=== PATIENT | male | born 1940 | race Caucasian/White ===

== ENCOUNTER 2021-10-11 12:41 | Outpatient (REF) | payer MEDICARE, SELFPAY ==
--- NOTE | ~2021-10-11 | MR_ITS ---
MRI OF THE CERVICAL, THORACIC, AND LUMBAR SPINE WITHOUT CONTRAST. CLINICAL INFORMATION: PARKINSONISM. COMPARISON: None TECHNIQUE: Multiplanar multisequence MR imaging of the cervical, thoracic, and lumbar spine obtained without contrast. FINDINGS: CERVICAL SPINE MRI: Cervical alignment is maintained. Vertebral body heights are preserved. There is mild to moderate disc volume loss at C4-C5, C5-C6 and C6-C7. Craniocervical junction is unremarkable. Modic type I endplate signal changes at C5-C6. There is no additional bone marrow edema. The partially imaged intracranial compartment demonstrates global cerebral volume loss and chronic microangiopathy. The cervical arterial flow voids are maintained. No significant extraspinal soft tissue findings. No definite cord signal changes though assessment is very limited by the degree of motion artifact. C2-C3: Slight annular disc bulge. Bilateral facet arthropathy. No central canal stenosis and no foraminal stenosis. C3-C4: Advanced left-sided uncovertebral joint hypertrophy and hypertrophic facet arthropathy result in severe left foraminal stenosis. No central canal stenosis. Mild right foraminal encroachment. C4-C5: Disc osteophyte without central canal stenosis. Advanced uncovertebral joint hypertrophy and hypertrophic facet arthropathy result in moderate left foraminal stenosis. C5-C6: Disc osteophyte and ligamentum flavum thickening mildly narrow the central canal. Advanced uncovertebral joint hypertrophy and hypertrophic facet arthropathy result in severe bilateral foraminal stenosis. C6-C7: Disc osteophyte mildly narrows the central canal. Advanced uncovertebral joint hypertrophy and hypertrophic facet arthropathy result in moderate to severe bilateral foraminal stenosis. C7-T1: Disc osteophyte without central canal stenosis. No foraminal stenosis. THORACIC SPINE MRI: There are 12 rib-bearing thoracic type vertebral bodies. Leftward convex curvature of the upper thoracic spine. There is a midthoracic kyphosis. The vertebral body heights are maintained and the disc volumes are preserved. No bone marrow edema. No acute fractures. Conus terminates at the L1 level. Small chronic endplate Schmorl's nodes at the lower thoracic levels. Small disc protrusion at T9-T10 associated with an annular fissure along with left-sided ligamentum flavum thickening and facet arthropathy result in slight flattening of the left cord and mild left-sided central canal stenosis. No severe foraminal stenosis within the thoracic spine. There is a right renal cyst and there is a small cyst partially imaged within the liver. LUMBAR SPINE MRI: There is a leftward convex scoliotic curvature of the lumbar spine. 5 nonrib-bearing lumbar-type vertebral bodies. There is grade 1 degenerative anterolisthesis of L4 on L5 and L5 on S1. Grade 1 retrolisthesis of L1 on L2, L2 on L3, and L3 on L4. Otic type I endplate signal changes at L1-L2, L2-L3, L3-L4, L4-L5, and L5-S1. Partially imaged heterogeneous increased signal on STIR weighted imaging within the partially imaged right and left sacral sheree that can be further assessed with a pelvic MRI to exclude sacral pathology or a pelvic fracture. Bilateral renal cysts. Bladder is significantly distended. L1-L2: Grade 1 retrolisthesis. Diffuse annular disc bulge and bilateral facet arthropathy. No central canal stenosis. Mild foraminal encroachment bilaterally. L2-L3: Grade 1 retrolisthesis. Shallow right paracentral disc protrusion results in posterior mass effect on the traversing right L3 nerve root within the right subarticular zone and right lateral disc osteophyte and facet arthropathy result in severe right foraminal stenosis with compression of the exiting right L2 nerve root. L3-L4: Grade 1 retrolisthesis. Diffuse disc osteophyte and moderate to severe bilateral facet arthropathy and ligamentum flavum thickening. Mild central canal stenosis. Moderate right foraminal stenosis with mild mass effect on the exiting right L3 nerve root. L4-L5: Slight grade 1 anterolisthesis. Uncovered disc osteophyte. Severe bilateral facet arthropathy and ligamentum flavum thickening. Findings in concert result in moderate central canal stenosis as well as severe right and moderate left foraminal stenosis with mass effect on the exiting right greater than left L4 nerve roots. L5-S1: Grade 1 anterolisthesis. Severe bilateral facet arthropathy and ligamentum flavum thickening. Findings in concert result in mild central canal stenosis, severe left subarticular zone stenosis with compression of the traversing left S1 nerve root, as well as moderate to severe left foraminal stenosis with compression of the exiting left L5 nerve root. MR/MR cervical spine wo con IMPRESSION: Multilevel cervical spondylosis. Spondylitic changes result in varying degrees of moderate to severe foraminal stenosis throughout the cervical spine as described. No severe central canal stenosis within the cervical spine. No definite cord signal changes though assessment is very limited by the degree of motion artifact. There is a thoracic kyphoscoliosis. A small left paracentral disc protrusion at T9-T10 associated with an annular fissure along with left-sided ligamentum flavum thickening and facet arthropathy result in slight flattening of the left cord and mild left-sided central canal stenosis. No severe foraminal stenosis within the thoracic spine. No definite cord signal changes within the thoracic spine however assessment is limited by the degree of artifact. - Partially imaged heterogeneous increased signal on STIR weighted imaging within the partially imaged right and left sacral sheree that can be further assessed with a pelvic MRI to exclude sacral pathology or a pelvic fracture. - At L2-L3, a right paracentral/right lateral disc protrusion results in posterior mass effect on the traversing right L3 nerve root within the right subarticular zone severe right foraminal stenosis with compression of the exiting right L2 nerve root. - At L3-L4, grade 1 retrolisthesis and multifactorial degenerative changes result in central canal stenosis and moderate right foraminal stenosis with mild mass effect on the exiting right L3 nerve root. - At L4-L5, grade 1 anterolisthesis and multifactorial degenerative changes result in moderate central canal stenosis as well as severe right and moderate left foraminal stenosis with mass effect on the exiting right greater than left L4 nerve roots. - At L5-S1, grade 1 anterolisthesis and multifactorial degenerative changes result in mild central canal stenosis, severe left subarticular zone stenosis with compression of the traversing left S1 nerve root, as well as moderate to severe left foraminal stenosis with compression of the exiting left L5 nerve root. - Bladder is significantly distended.
== END 2021-10-11 12:42 | disposition home or self-care (01) ==
LOC: HO.MRI 12:41
PROVIDERS: PCP Internal Medicine; Visit Provider Internal Medicine
DX: G20 Parkinson's disease (principal); G24.8 Other dystonia
CPT/HCPCS: 72141; 72146; 72148

== ENCOUNTER 2022-09-01 15:33 | Emergency (ER) | payer MEDICARE, SELFPAY ==
--- NOTE | ~2022-09-01 | CT_ITS ---
Indication: Multiple falls EXAMINATION: CT of the brain and CT of the cervical spine. Axial imaging with coronal and sagittal reformatted images. This CT examination was performed using dose optimization techniques as appropriate, variously including the following: *Automated exposure control *Adjustment of mA and/or kV according to patient size (this includes techniques or standardized protocols for targeted exams where dose is matched to indication/reason for exam; i.e. extremities or head) *Use of iterative reconstruction technique. Radiation dose [address] brain; There is no midline shift. There is no mass effect. There is no hemorrhage. The basal cisterns appear patent. The posterior fossa is grossly within normal limits. There is no extra-axial collection. There is atrophy and white matter ischemic change here. Low density within the right cerebellum could represent an infarct here Review of the bone windows does not demonstrate fracture. CT cervical spine; Degenerative changes. No acute fracture or dislocation. CT/CT head/brain wo IV con IMPRESSION: Negative acute noncontrast CT the brain. Atrophy and probable white matter ischemic changes. An area of low density in the right cerebellum could represent infarct. Underlying lesion cannot be completely excluded. Consider MR. No fracture or dislocation in the cervical spine.
--- NOTE | ~2022-09-01 | CT_ITS ---
EXAMINATION: CT FACIAL BONES WITHOUT CONTRAST CLINICAL INFORMATION: Trauma COMPARISON: None TECHNIQUE: Axial imaging with coronal and sagittal reformatted images. This CT examination was performed using dose optimization techniques as appropriate, variously including the following: *Automated exposure control *Adjustment of mA and/or kV according to patient size (this includes techniques or standardized protocols for targeted exams where dose is matched to indication/reason for exam; i.e. extremities or head) *Use of iterative reconstruction technique DLP: 450 mGy-cm FINDINGS: No fracture CT/CT facial bones wo IV con IMPRESSION: No fracture seen facial bones.
--- NOTE | ~2022-09-01 | CT_ITS ---
Indication: Multiple falls EXAMINATION: CT of the brain and CT of the cervical spine. Axial imaging with coronal and sagittal reformatted images. This CT examination was performed using dose optimization techniques as appropriate, variously including the following: *Automated exposure control *Adjustment of mA and/or kV according to patient size (this includes techniques or standardized protocols for targeted exams where dose is matched to indication/reason for exam; i.e. extremities or head) *Use of iterative reconstruction technique. Radiation dose [address] brain; There is no midline shift. There is no mass effect. There is no hemorrhage. The basal cisterns appear patent. The posterior fossa is grossly within normal limits. There is no extra-axial collection. There is atrophy and white matter ischemic change here. Low density within the right cerebellum could represent an infarct here Review of the bone windows does not demonstrate fracture. CT cervical spine; Degenerative changes. No acute fracture or dislocation. CT/CT cervical spine wo IV con IMPRESSION: Negative acute noncontrast CT the brain. Atrophy and probable white matter ischemic changes. An area of low density in the right cerebellum could represent infarct. Underlying lesion cannot be completely excluded. Consider MR. No fracture or dislocation in the cervical spine.
[2022-09-01 15:45] VITALS: BP 130/72; PULSE 60
[2022-09-01 15:58] VITALS: BP 111/85; PULSE 71; RESP 18; TEMP 36.9; O2SAT 95; BMI 22.8
--- NOTE | 2022-09-01 16:00 | PC.NURSE ---
81 y/o M TRAVIS from home with multiple falls and wound to LLE. currently being worked up for ?parkinsons by PCP and was on track to see neurologist. pt is aox3, calm and cooperative, VSS. 18G IV in place, c-collar in place. in gown, on monitor, awaiting MD limon
--- NOTE | 2022-09-01 16:23 | ECG_ITS ---
Test Reason : fall Blood Pressure : / mmHG Vent. Rate : 077 BPM Atrial Rate : 000 BPM P-R Int : 000 ms QRS Dur : 132 ms QT Int : 404 ms P-R-T Axes : 000 -60 042 degrees QTc Int : 457 ms Atrial fibrillation with occasional ventricular-paced complexes Right bundle branch block Left anterior fascicular block Bifascicular block Abnormal ECG When compared with ECG of 24-SEP-2017 12:12, Electronic ventricular pacemaker has replaced Atrial fibrillation Referred By: Traci Collado Electronically Signed By:Hayden Chavarria
--- NOTE | 2022-09-01 16:27 | ED_ITS ---
HPI - General Adult General Chief complaint: Fall Stated complaint: Fall (bruise on face) per EMS Time Seen by Provider: 09/01/22 15:50 Source: patient Mode of arrival: EMS Limitations: no limitations History of Present Illness HPI narrative: Patient comes to the emergency room from home. Patient states that over the last few weeks, patient has had multiple falls. Today, patient fell again and hit the back of his head. Patient denies loss of consciousness or lacerations. Patient has history of Parkinson's, walks using canes. Patient denies headache or neck pain. Patient states that he has a nonhealing wound in his left lower extremity. Mildly tender to touch. Patient denies fever chills Related Data Allergies Allergy/AdvReac Type Severity Reaction Status Date / Time amoxicillin [From AUGMENTIN] Allergy Intermediate LIP Unverified 05/05/20 18:07 SWELLING clavulanic acid Allergy Intermediate LIP Unverified 05/05/20 18:07 [From AUGMENTIN] SWELLING piperacillin [From ZOSYN] Allergy Intermediate LIP Unverified 05/05/20 18:07 SWELLING tazobactam [From ZOSYN] Allergy Intermediate LIP Unverified 05/05/20 18:07 SWELLING Review of Systems Review of Systems: Constitutional : No Weight loss, No Fever, No Chills, No Night Sweats, No Fatigue, No Malaise ENT/Mouth : No Hearing loss, No Ear Pain, No Nasal Congestion, No Sinus Pain, No Hoarseness, No sore throat, No Rhinorrhea, No Swallowing Difficulty Eyes: No Eye Pain, No Swelling, No Redness, No Foreign Body, No Discharge, No Vision Changes Cardiovascular : No Chest Pain, No SOB, No Dyspnea on Exertion, No Orthopnea, No Edema, No Palpitations Respiratory : No Cough, No Sputum, No Wheezing, No Smoke Exposure, No Dyspnea Gastrointestinal : No Nausea, No Vomiting, No Diarrhea, No Constipation, No abdominal Pain, No Hematochezia, No Melena Genitourinary : no irregular bleeding, No Dysuria, No Urinary Frequency, No Hematuria, No Urinary Incontinence, No Urgency, No Flank Pain, No Urinary Flow Changes, No Hesitancy Musculoskeletal : No joint pain, No Myalgias, No Joint Swelling Skin : Complaining of a nonhealing ulcer in the ribera on the left lower extremity Neuro : Complaining of multiple falls, No Numbness, No Paresthesias, No Loss of Consciousness, No Dizziness, No Headache Psych : No Anxiety/Panic, No Depression, No SI/HI/AH/VH, No Social Issues, Heme/Lymph: No Bruising, No Bleeding,No Lymphadenopathy Endocrine : No Polyuria, No Polydipsia, No Temperature Intolerance [facility] Past Medical History Medical History Atrial fibrillation Parkinson's disease Social History Social History Advance Directives: No Physical Exam ED Vital Signs: Vital Signs - 24 hr 09/01/22 15:58 09/01/22 18:49 09/01/22 20:14 Temperature 98.4 F 97.7 F 98.4 F Pulse Rate 71 91 81 Respiratory Rate 18 18 17 Blood Pressure 111/85 121/65 115/64 Pulse Oximetry 95 99 100 Oxygen Delivery Method Room Air Room Air BMI result Body Mass Index 22.8 Const Other: Appearance: Alert. Oriented X3. No acute distress. Eyes: Pupils equal, round and reactive to light. ENT: Pharynx normal. Neck: Normal inspection. Neck supple. No lymph nodes noted. No crepitus, no palpable step-offs CVS: Normal heart rate and rhythm. Pulses normal. Normal S1 and S2 Respiratory: No respiratory distress. Breath sounds normal. No Wheezing. No rales Abdomen: Soft and nontender. No rigidity. No distention. Skin: Skin warm and dry. A scar on anterior aspect of the left lower extremity Extremities: No lower extremity edema. Neuro: Oriented X 3. Moving all extremities. No slurred speech. CN 2 through 12 grossly intact Psych: calm, cooperative, normal affect Course Course Course Narrative: -patient has multiple falls to the Parkinson's -head CT cervical spine and facial bone CT pending -patient has no complaints at this time. -grease man is on the way. We will assess if patient needs case management involvement for escalation of care -CT scan shows an area of low density in the right cerebellum which could re present an infarct and an MRI is recommended. Patient has a pacemaker. I discussed the findings with the patient and his son. Both states that patient has had multiple workups in the past. They requested if they can call their neurologist and have the workup done in an outpatient basis. Pacing the patient would do better back at home. Patient and his son respectfully declined admission. -other than the multiple falls, patient has no new neurological deficits. Urinalysis negative. Case management consult and physical therapy was offered to the patient and the son. They say that they have Services pending through [facility] case management. At this time, they declined any further assistance. Patient did his own swallow evaluation, when we walked into the room patient was eating a burger and tolerating well p.o. Medical Decision Making Differential Diagnosis Differential Diagnoses: The differential diagnosis associated with the presentation includes (Parkinson's, concussion, CVA) Admission/Observation Consideration of admission/observation: Escalation of care including admission/observation considered (Admission was offered and Dr. Fong agreed to admit the patient. Both of us spoke to the patient and his son, both son and patient agreed that they would do the workup in an outpatient basis rounding getting admitted.) Consult Healthcare Provider Management of the patient was discussed with: Hospitalist Lab Data MDM Lab Attestation statement: I reviewed the patient's lab results. 09/01/22 17:22 09/01/22 17:22 Labs: Lab Results 09/01/22 09/01/22 09/01/22 Range/Units 17:21 17:22 17:22 WBC 4.9 (4.8-10.8) X10*3/uL RBC 3.42 L (4.60-5.80) X10*6/uL Hgb 10.7 L (14.0-18.0) g/dl Hct 33.6 L (42.0-52.0) % MCV 98.2 H (80.0-98.0) fL MCH 31.3 (27.0-33.0) pg MCHC 31.8 (31.0-36.0) g/dl RDW 14.0 (11.0-16.0) % Plt Count 200 (160-400) X10*3/uL MPV 8.5 L (9.4-12.4) fL Immature Gran % (Auto) 0.4 (0.0-0.4) % Neut % (Auto) 69.6 (45-73) % Lymph % (Auto) 14.4 L (20-40) % Coke % (Auto) 12.4 H (2-11) % Eos % (Auto) 2.4 (0-4) % Baso % (Auto) 0.8 (0-2) % Lymph # (Auto) 0.7 L (1.2-4.9) X10*3/uL Coke # (Auto) 0.6 (0.1-1.2) X10*3/uL Eos # (Auto) 0.1 (0.0-0.4) X10*3/uL Baso # (Auto) 0.0 (0.0-0.2) X10*3/uL Abs Immat Gran (auto) 0.02 (0.00-0.03) X10*3/uL Absolute Neuts (auto) 3.4 (2.0-8.3) x10*3/uL Absolute Nucleated RBC 0.000 (0.0-0.012) X10*3/uL Nucleated RBC % (auto) 0.0 (0.0-0.2) /100WBC Sodium 139 (135-145) mmol/L Potassium 5.1 (3.3-5.1) mmol/L Chloride 106 (96-108) mmol/L Carbon Dioxide 24 (22-29) mmol/L Anion Gap 14 (12-20) BUN 40 H (9-16) mg/dL Creatinine 0.75 (0.5-1.4) mg/dL Estim Creat Clear Calc 71.8 Estimated GFR > 60 Random Glucose 78 (60-115) mg/dL Calcium 9.0 (8.4-10.2) mg/dL Total Bilirubin 1.4 H (0.0-1.0) mg/dL Direct Bilirubin 0.5 (0.0-0.5) mg/dL AST 34 (5-37) U/L ALT 17 (0-40) U/L Alkaline Phosphatase 112 (39-117) U/L Troponin I High Sens (<3.5-35.0) ng/L Total Protein 6.2 L (6.5-8.0) g/dL Albumin 3.1 L (3.5-5.0) g/dL COVID-19 ([facility]) Negative (Negative) COVID-19 Clin Com See Note 09/01/22 Range/Units 17:22 WBC (4.8-10.8) X10*3/uL RBC (4.60-5.80) X10*6/uL Hgb (14.0-18.0) g/dl Hct (42.0-52.0) % MCV (80.0-98.0) fL MCH (27.0-33.0) pg MCHC (31.0-36.0) g/dl RDW (11.0-16.0) % Plt Count (160-400) X10*3/uL MPV (9.4-12.4) fL Immature Gran % (Auto) (0.0-0.4) % Neut % (Auto) (45-73) % Lymph % (Auto) (20-40) % Coke % (Auto) (2-11) % Eos % (Auto) (0-4) % Baso % (Auto) (0-2) % Lymph # (Auto) (1.2-4.9) X10*3/uL Coke # (Auto) (0.1-1.2) X10*3/uL Eos # (Auto) (0.0-0.4) X10*3/uL Baso # (Auto) (0.0-0.2) X10*3/uL Abs Immat Gran (auto) (0.00-0.03) X10*3/uL Absolute Neuts (auto) (2.0-8.3) x10*3/uL Absolute Nucleated RBC (0.0-0.012) X10*3/uL Nucleated RBC % (auto) (0.0-0.2) /100WBC Sodium (135-145) mmol/L Potassium (3.3-5.1) mmol/L Chloride (96-108) mmol/L Carbon Dioxide (22-29) mmol/L Anion Gap (12-20) BUN (9-16) mg/dL Creatinine (0.5-1.4) mg/dL Estim Creat Clear Calc Estimated GFR Random Glucose (60-115) mg/dL Calcium (8.4-10.2) mg/dL Total Bilirubin (0.0-1.0) mg/dL Direct Bilirubin (0.0-0.5) mg/dL AST (5-37) U/L ALT (0-40) U/L Alkaline Phosphatase (39-117) U/L Troponin I High Sens 17.1 (<3.5-35.0) ng/L Total Protein (6.5-8.0) g/dL Albumin (3.5-5.0) g/dL COVID-19 ([facility]) (Negative) COVID-19 Clin Com Independent Interpretation I performed an independent interpretation of an: CT Scan (No acute findings, no bleed) Radiology Impression Discussion of test interpretation with radiology: I have reviewed the radiologist's reading. Radiologist Impression: EXAMINATION: CT of the brain and CT of the cervical spine. Axial imaging with coronal and sagittal reformatted images. This CT examination was performed using dose optimization techniques as appropriate, variously including the following: *Automated exposure control *Adjustment of mA and/or kV according to patient size (this includes techniques or standardized protocols for targeted exams where dose is matched to indication/reason for exam; i.e. extremities or head) *Use of iterative reconstruction technique. Radiation dose [address] brain; There is no midline shift. There is no mass effect. There is no hemorrhage. The basal cisterns appear patent. The posterior fossa is grossly within normal limits. There is no extra-axial collection. There is atrophy and white matter ischemic change here. Low density within the right cerebellum could represent an infarct here Review of the bone windows does not demonstrate fracture. CT cervical spine; Degenerative changes. No acute fracture or dislocation. CT/CT head/brain wo IV con IMPRESSION: Negative acute noncontrast CT the brain. Atrophy and probable white matter ischemic changes. ? An area of low density in the right cerebellum could represent infarct. Underlying lesion cannot be completely excluded. Consider MR. ? No fracture or dislocation in the cervical spine. Independent Historian Clinical information obtained from an independent historian. History obtained from or confirmed by: Other (Patient's son) Discharge Plan Discharge Clinical Impression: Multiple falls, Parkinson's disease Patient Disposition: Home, Self-Care Instructions: Fall Prevention for Older Adults (ED) Additional Instructions: Please follow-up with your primary care physician tomorrow. If you have any worsening or new symptoms, please return to the emergency room or call 911
--- NOTE | 2022-09-01 16:32 | PC.NURSE ---
charge nurse spoke w PCP, rec discuss STR w pt prior to discharge, PCP feels as though pt needs more help at home, pt has historically declined additional services.
[2022-09-01 17:28] LABS: MANUAL DIFF FLAG NO
[2022-09-01 17:33] LABS: Basophils Percent Auto 0.8 % (0-2); Eosinophils Absolute Auto 0.1 X10*3/uL (0.0-0.4); Eosinophils Percent Auto 2.4 % (0-4); Hematocrit 33.6 % (42.0-52.0); Hemoglobin 10.7 g/dl (14.0-18.0); Imm Gran Abs Auto 0.02 X10*3/uL (0.00-0.03); Imm Gran Pct Auto 0.4 % (0.0-0.4); Lymphocytes Absolute Auto 0.7 X10*3/uL (1.2-4.9); Lymphocytes Percent Auto 14.4 % (20-40); Mean Corpuscular HGB Conc 31.8 g/dl (31.0-36.0); Mean Corpuscular Hemoglobin 31.3 pg (27.0-33.0); Mean Corpuscular Volume 98.2 fL (80.0-98.0); Mean Platelet Volume 8.5 fL (9.4-12.4); Monocytes Absolute Auto 0.6 X10*3/uL (0.1-1.2); Monocytes Percent Auto 12.4 % (2-11); Neutrophils Absolute Auto 3.4 x10*3/uL (2.0-8.3); Neutrophils Percent Auto 69.6 % (45-73); Platelet Count 200 X10*3/uL (160-400); Red Blood Count 3.42 X10*6/uL (4.60-5.80); White Blood Count 4.9 X10*3/uL (4.8-10.8)
[2022-09-01 17:46] LABS: COVID-19 Test Negative (Negative); IDNOW Serial# 55D5AD1C
[2022-09-01 17:49] LABS: Alanine Aminotransferase 17 U/L (0-40); Albumin Level 3.1 g/dL (3.5-5.0); Alkaline Phosphatase 112 U/L (39-117); Anion Gap 14 (12-20); Aspartate Amino Transferase 34 U/L (5-37); Bilirubin Direct 0.5 mg/dL (0.0-0.5); Bilirubin Total 1.4 mg/dL (0.0-1.0); Blood Urea Nitrogen 40 mg/dL (9-16); Carbon Dioxide 24 mmol/L (22-29); Chloride 106 mmol/L (96-108); Creatinine Clr Calc Pharmacy 71.8; Estimated Glomerular Filt Rate > 60; Glucose Random 78 mg/dL (60-115); Potassium 5.1 mmol/L (3.3-5.1); Sodium 139 mmol/L (135-145); Total Protein 6.2 g/dL (6.5-8.0)
[2022-09-01 17:53] LABS: Troponin-I High Sensitivity 17.1 ng/L (<3.5-35.0)
[2022-09-01 18:49] VITALS: BP 121/65; PULSE 91; RESP 18; TEMP 36.5; O2SAT 99
[2022-09-01 20:14] VITALS: BP 115/64; PULSE 81; RESP 17; TEMP 36.9; O2SAT 100
--- NOTE | 2022-09-01 20:15 | PC.NURSE ---
Pt's V/S are stable, pt is on continuos pvc monitor and it shows a-fib. Pt denies case monitor, and would like to go home. This nurse provided education of the risk factor of recurrent falls. PT does not have any cognitive impairment.
--- NOTE | 2022-09-01 21:53 | PC.NURSE ---
Pt's V/S are stable, pt's son is at bedside. Pt urine was collected and is dark with foul smell. Pt denies any pain or burning sensation.
[2022-09-01 22:02] LABS: Appearance Urine Clear; Color Urine Yellow; Glucose Urine UA Negative (Negative); Leukocyte Esterase Urine Negative (Negative); Nitrite Urine Negative (Negative); Specific Gravity - Urine 1.025 (1.005-1.025); UMIC TRIGGER UACC YES; Urine Blood Negative (Negative); Urine Ketones Negative (Negative); Urine Protein 30 (1+) mg/dL (Neg-Trace)
[2022-09-01 22:07] LABS: Bacteria Urine None Seen (None Seen); Hyaline Casts Urine 0-2 /LPF (0-2); RBC Urine 0-2 /HPF (0-2); Squamous Epithelial Cell Urine 0-2 /HPF (0-2); WBC Urine 0-5 /HPF (0-5)
--- NOTE | 2022-09-01 23:00 | MHC.EDTECH ---
this pct assumed care of patient at 2300 ,patient vitals sign taken ,colostomy bag empty ,large amount of watery stool empty ,patient son in room getting patient ready to go home ,i offer to help ,but patient son said he was fine .
[2022-09-01 23:22] VITALS: BP 128/70; PULSE 93; RESP 16; TEMP 36.6; O2SAT 97
== END 2022-09-01 23:49 | disposition home or self-care (01) ==
PROVIDERS: Emergency Provider Emergency Medicine; PCP Internal Medicine
DX: R29.6 Repeated falls (principal); Z91.81 History of falling; G20 Parkinson's disease; Z20.822 Contact with and (suspected) exposure to COVID-19; I48.91 Unspecified atrial fibrillation; Z95.0 Presence of cardiac pacemaker
CPT/HCPCS: 36415; 70450; 70486; 72125; 80048; 80076; 81001; 81003; 84484; 85025; 87635; 93005; 99284

== ENCOUNTER 2023-09-30 12:33 | Outpatient (REF) | payer MEDICARE, SELFPAY ==
--- NOTE | ~2023-09-30 | MR_ITS ---
EXAMINATION: MR BRAIN WITHOUT CONTRAST CLINICAL INFORMATION: Alzheimer's disease. COMPARISON: CT scan of the head 09/01/2022. TECHNIQUE: MRI of the brain was obtained using routine sequences without contrast. FINDINGS: There is loss of parenchymal volume primarily within the parietal and temporal lobes with corresponding ex vacuo enlargement of the lateral ventricles. No intracranial mass effect or midline shift. The cervicomedullary junction is normal. No acute bone marrow signal changes. There are numerous foci of T2 FLAIR signal hyperintensity primarily involving the periventricular white matter. No acute territorial infarct. No pathological magnetic susceptibility artifact. Intracranial vascular flow voids are maintained. There is no mastoid middle ear effusion. Mild paranasal sinus disease primarily affecting the ethmoid air cells and the alveolar recess of left maxillary sinus. MR/MR head/brain wo con IMPRESSION: There is loss of parenchymal volume primarily within the parietal and temporal lobes with corresponding ex vacuo enlargement of the lateral ventricles. Numerous chronic small vessel ischemic changes are also visualized within the periventricular white matter. No evidence of acute territorial infarct or hemorrhage.
== END 2023-09-30 12:34 | disposition home or self-care (01) ==
LOC: HO.MRI 12:33
PROVIDERS: PCP Internal Medicine; Visit Provider Psychiatry & Neurology Neurology
DX: G30.9 Alzheimer's disease, unspecified (principal)
CPT/HCPCS: 70551

== ENCOUNTER 2023-10-16 14:07 | Outpatient (AMB) | payer MEDICARE, SELFPAY ==
--- NOTE | 2023-10-16 14:05 | MHC.OFFVIS ---
Intake Vital Signs 10/16/23 14:20 Height 5 ft 6.7 in Weight 138 lb 2 oz BMI 21.8 BP 111/53 L Blood Pressure Location Lt brachial Position Sitting Pulse 82 Intake Visit Reasons: Hard nodule in lymph node of groin Intake Note: Patient is seen in office for evaluation of a hard nodule in lymph node right groin area. Patient c/o: notice a lump a while back however is been more pronounce for the last 10 days, denies pain or any other concerns Customer Contact Sales Associate Required: No Accompanied by: Son Allergies amoxicillin [From AUGMENTIN] Allergy (Intermediate, Unverified 10/16/23 14:16) LIP SWELLING clavulanic acid [From AUGMENTIN] Allergy (Intermediate, Unverified 10/16/23 14:16) LIP SWELLING piperacillin [From ZOSYN] Allergy (Intermediate, Unverified 10/16/23 14:16) LIP SWELLING tazobactam [From ZOSYN] Allergy (Intermediate, Unverified 10/16/23 14:16) LIP SWELLING Medication List - Last Reconciled 10/17/23 by Kevon Kulkarni MD atenolol 75 mg PO DAILY carbidopa-levodopa 25-100 mg tabs PO donepezil 10 mg PO DAILY levothyroxine mcg PO HPI HPI Comments History of Present Illness Details 83-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 He has a previous history of a rectal carcinoma treated in 2007 with a low anterior resection, later requiring an ileostomy. He also underwent a left inguinal hernia repair in 2018 at which time a left inguinal lymph node was removed. Pathology of this node revealed a reactive lymph node without malignancy. He denies any fever, chills, anorexia, bloody stool, abdominal pain, nausea or vomiting. He denies any pain on palpation of the lymph node. [facility] Medical History Atrial fibrillation Parkinson's disease Surgical History Hx of colectomy (2007) History of left inguinal hernia repair (09/26/17) Social History Alcohol intake: current Alcohol intake frequency: holidays/special occasions only Patient Tobacco Use Status: Never used Tobacco Review of Systems Const All systems reviewed & are unremarkable except as noted in HPI and below Reports body aches GI Denies abdominal pain, Denies constipation, Denies nausea and Denies vomiting Reports as per HPI Physical Exam Vital Signs: Last Vital Signs Pulse 82 10/16/23 14:20 BP 111/53 L 10/16/23 14:20 BMI result Body Mass Index 21.8 Const General: no acute distress Nutritional Appearance: well nourished Orientation/consciousness: patient oriented x3 Limitations: ambulation with walker Resp Effort & Inspection: normal respiratory effort, no audible wheezes and no cough GI Other: Soft, nondistended, ileostomy in place functioning with nonbloody stool. Palpable node in the right groin measuring approximately 3 cm in diameter, hard and mobile within the subcutaneous tissue. No overlying skin changes appreciated. Abdomen image: 1. Enlarged lymph node right groin Skin Other: Warm, dry Neuro General: patient oriented x3 Extrem General: Yes no clubbing, cyanosis or edema Assessment & Plan Assessment & Plan (1) Lymphadenopathy: Code(s): R59.1 - Generalized enlarged lymph nodes Plan 83-year-old male patient with history of Parkinson's disease, rectal cancer, now with right inguinal lymphadenopathy. On examination there is a 3 cm enlarged, firm lymph node which does appear suspicious. We discussed options including needle core biopsy, fine-needle aspiration verses surgical excision. We decided proceed with a surgical excision as the most definitive way to diagnose the etiology. After discussion of the procedure, risks, and alternatives, he consents to the right inguinal lymph node excision. Coding Level of Care Code New Pt Level 4 (00146) Diagnoses Lymphadenopathy R59.1
[2023-10-16 14:20] VITALS: BP 111/53; PULSE 82; BMI 21.8
== END 2023-10-16 14:40 | disposition home or self-care (01) ==
PROVIDERS: PCP Internal Medicine; Referring Provider Internal Medicine; Visit Provider Surgery
DX: R59.1 Generalized enlarged lymph nodes (principal)
CPT/HCPCS: 99204

== ENCOUNTER → 2023-10-16 14:07 | Outpatient (BNVA) | payer MEDICARE, SELFPAY | PROVIDERS: PCP Internal Medicine; Referring Provider Internal Medicine; Visit Provider Surgery | DX: R59.1 Generalized enlarged lymph nodes (principal) | CPT/HCPCS: 99202 ==

== ENCOUNTER 2023-11-04 06:02 | Day surgery (SDC) | payer MEDICARE, SELFPAY ==
[2023-10-31 16:00] VITALS: BMI 20.7
[2023-11-04 06:51] VITALS: BP 97/53; PULSE 61; RESP 16; TEMP 36.6; O2SAT 99; BMI 21.6
--- NOTE | 2023-11-04 07:08 | P.CONAN_ITS ---
FORMERLY [facility], LATER [facility] Active Problems Active Problems: All Active Problems (Updated 10/31/23 @ 16:21 by Loree Oliveros RN) Lymphadenopathy (Acute) Past Medical History Medical History (Updated 10/31/23 @ 16:21 by Loree Oliveros RN) Hx of sick sinus syndrome History of rectal cancer Ileostomy in place Scoliosis Osteoarthritis Cardiac pacemaker Atrial fibrillation Parkinson's disease Family History Family history of problems with anesthesia: No Surgical History Surgical History (Updated 10/31/23 @ 15:54 by Loree Oliveros RN) Hx of colonoscopy Hx of colectomy (2007) History of left inguinal hernia repair (09/26/17) History of Problems with Anesthesia: No Social History Social History (Updated 10/31/23 @ 16:04 by Loree Oliveros RN) Household Members: None Housing: House Are you a primary floor care technician to a significant other at home: No Do you presently have visiting nurse or other home services: No (supportive son Salvador, discussing resources for care with PCP) Alcohol intake: current Alcohol intake frequency: holidays/special occasions only Patient Tobacco Use Status: Never used Tobacco Use of substances other than those prescribed or required for medical reasons: No Advance Directives: No Advance Directives Information Provided: Yes Advance Directives on File: No Recently lost weight without trying: No Nutrition Risks: Surgical patient >75years Meds Allergies Allergy/AdvReac Type Severity Reaction Status Date / Time amoxicillin [From AUGMENTIN] Allergy Intermediate LIP Unverified 10/16/23 14:16 SWELLING clavulanic acid Allergy Intermediate LIP Unverified 10/16/23 14:16 [From AUGMENTIN] SWELLING piperacillin [From ZOSYN] Allergy Intermediate LIP Unverified 10/16/23 14:16 SWELLING tazobactam [From ZOSYN] Allergy Intermediate LIP Unverified 10/16/23 14:16 SWELLING diltiazem AdvReac Weakness Verified 10/31/23 15:45 Active Medications: Current Medications Vancomycin HCl 1,000 mg/ (Sodium Chloride) 270 mls @ 270 mls/hr IV PREOP ONE Stop: 11/04/23 07:47 Lactated Ringer's (Lr) 1,000 mls @ 100 mls/hr IVCONT .Q10H [facility]acy Consult (Consult Rx Vancomycin Dosing) 1 each MISCELLANE DAILY PRN PRN Reason: Consult order Home Medications Medication Instructions Recorded Confirmed Last Taken Type atenolol 50 mg tablet 75 mg PO DAILY 10/16/23 10/31/23 Unknown History carbidopa 25 mg-levodopa 100 mg 3 tab PO TID 10/16/23 10/31/23 Unknown History tablet donepezil 10 mg tablet 10 mg PO DAILY 10/16/23 10/31/23 Unknown History levothyroxine 150 mcg tablet 150 mcg PO DAILY 10/16/23 10/31/23 Unknown History ciclopirox olamine 10/31/23 10/31/23 Unknown History digoxin 125 mcg (0.125 mg) tablet 125 mcg PO DAILY 10/31/23 10/31/23 Unknown History ergocalciferol (vitamin D2) 1,250 1,250 mcg PO QWEEK 10/31/23 10/31/23 Unknown History mcg (50,000 unit) capsule (Vitamin D2) multivitamin 1 tab PO DAILY 10/31/23 10/31/23 Unknown History vit C 250 mg-vit E 90 mg-zinc 40 1 tab PO BID 10/31/23 10/31/23 Unknown History mg-copper 1 [id number] capsule (PreserVision AREDS-2) Exam Height,Weight and Vital Signs: Height 5 ft 6.7 in Weight 62.143 kg Last Vital Signs Temp 97.9 F 11/04/23 06:51 Pulse 61 11/04/23 06:51 Resp 16 11/04/23 06:51 BP 97/53 L 11/04/23 06:51 Pulse Ox 99 11/04/23 06:51 O2 Del Method Room Air 11/04/23 06:51 Airway Mallampati Class: II TM Dist: >3cm Neck ROM: Full Loose/Missing/Broken Teeth: No Heart: rrr Lungs: cta b/l Assessment and Plan Assessment Anesthesia Assessment: Anesthesia Plan Discussed and Chart Reviewed Final Anesthetic Review Family History of Problems with Anesthesia: No History of Problems with Anesthesia: No NPO: Yes ASA Class: III Final Preanesthetic Review: No Changes in Pt Med Stat, Meds/Allgs Chart Reviewed, Consent Obtained/Reviewed and Anes Risks/Benef Reviewed Patient Risk: Intermediate Procedure Risk: Low Anesthetic Plan Anesthetic Plan: MAC: Disposition: Standard PACU
[2023-11-04] MEDS: vancomycin HCL 1,000 MG in 0.9 % Sodium Chloride 250 ML 270 MG IV (07:20)
[2023-11-04] MEDS: Lactated Ringers 1,000 ML 100 ML IVCONT (07:20)
--- NOTE | 2023-11-04 07:27 | MHC.SHP ---
Pre-Procedural Eval Section A - 24 Hr Update-Section A only Date of Service: 11/04/23 The patient is an INPATIENT: No Changes since office visit: Yes Patient answered all questions; No Cold of Flu in the past 2 weeks, No New Medical Problems and No Changes in Medication The patient has been examined within 24 hours of the surgical procedure. The History & Physical has been completed within 30 days and I have reviewed it.: Yes Section B - Complete if H&P > 30 days Chief Complaint: Generalized enlarged lymph nodes Allergies: Allergies Allergy/AdvReac Type Severity Reaction Status Date / Time amoxicillin [From AUGMENTIN] Allergy Intermediate LIP Verified 11/04/23 07:19 SWELLING clavulanic acid Allergy Intermediate LIP Verified 11/04/23 07:19 [From AUGMENTIN] SWELLING piperacillin [From ZOSYN] Allergy Intermediate LIP Verified 11/04/23 07:19 SWELLING tazobactam [From ZOSYN] Allergy Intermediate LIP Verified 11/04/23 07:19 SWELLING diltiazem AdvReac Weakness Verified 11/04/23 07:19 Plan Diagnosis/Plan: Unchanged I have reviewed the history and physical and performed a pertinent physical examination on my patient. No changes have occurred unless specified. Time Spent With Patient Time: Total time managing care of this patient today ____ minutes.
--- NOTE | 2023-11-04 08:17 | W.PM.OPN ---
Operative Note Operative Note Date of Service: 11/04/23 Narrative: Preoperative diagnosis: Right Inguinal lymphadenopathy Postoperative diagnosis: Same Procedure: Right inguinal lymph node biopsy Surgeon: Kevon Kulkarni MD Concaving Machine Operator: Elena Santiago PA-C, LACEY Palmer Anesthesia:MAC Indications for procedure: 83-year-old male patient presenting with several enlarging lymph nodes in the right groin of unknown etiology. Operative findings: Multiple enlarged lymph nodes right inguinal region Specimen: Right inguinal lymph node Estimated blood loss: Less than 1 mL Complications: None Procedure details: Patient was brought to the OR and placed in a supine position. After administering light sedation the patient's abdomen was prepped with ChloraPrep and draped in sterile fashion. A surgical time-out was called the consent confirmed. Patient received preoperative antibiotics and Venodyne boots were in place. Local anesthesia was then infiltrated over the inguinal ligament in a oblique fashion. An incision was then made over the lymph node and carried out through subcutaneous tissue up to the lymph node. The various vessels leading to the node were ligated and divided using 3-0 Polysorb ties. The node was lifted off the table and sent to pathology for further examination. Wounds were then irrigated with saline solution and suctioned dry. Tiffanie's fascia was closed over the node basin using interrupted 3-0 Polysorb sutures. Dermis was reapproximated using interrupted 3-0 Polysorb sutures. Skin was then closed using a running subcuticular 4-0 Polysorb suture. Steri-Strips, 2 x 2 gauze and Tegaderm were then applied. The patient tolerated the procedure well. Sponge, instrument, needle counts reported as correct. The patient was transferred to PACU in stable condition.
[2023-11-04 08:50] VITALS: BP 110/52; PULSE 72; RESP 15; TEMP 36.4; O2SAT 100
[2023-11-04 09:05] VITALS: BP 105/48; PULSE 63; RESP 12; O2SAT 100
[2023-11-04 09:20] VITALS: BP 101/62; PULSE 64; RESP 16; O2SAT 100
[2023-11-04 09:35] VITALS: BP 115/64; PULSE 65; RESP 16; TEMP 36.4; O2SAT 100
== END 2023-11-04 10:03 | disposition home or self-care (01) ==
PROVIDERS: PCP Internal Medicine; Visit Provider Surgery
PROC: (CPT 38500; principal; 2023-11-04 07:30)
DX: C77.4 Secondary and unspecified malignant neoplasm of inguinal and lower limb lymph nodes (principal); Z85.048 Personal history of other malignant neoplasm of rectum, rectosigmoid junction, and anus; Z90.49 Acquired absence of other specified parts of digestive tract; Z93.2 Ileostomy status; I48.91 Unspecified atrial fibrillation; G20.A1 Parkinson's disease without dyskinesia, without mention of fluctuations; Z79.899 Other long term (current) drug therapy; Z88.1 Allergy status to other antibiotic agents; Z98.890 Other specified postprocedural states
CPT/HCPCS: 38531; 88305; 88341; 88342; J2704; J2795; J3370

== ENCOUNTER → 2023-11-04 06:02 | Outpatient (BNV) | payer MEDICARE, SELFPAY | PROVIDERS: PCP Internal Medicine; Visit Provider Surgery | DX: R59.1 Generalized enlarged lymph nodes (principal) | CPT/HCPCS: 38531 ==

== ENCOUNTER 2023-11-14 13:48 | Outpatient (AMB) | payer MEDICARE, SELFPAY ==
--- NOTE | 2023-11-14 14:00 | A.OFFVIS_ITS ---
Intake Vital Signs 11/14/23 14:01 Height 5 ft 6 in Weight 136 lb 10.986 oz BMI 22.1 BP 110/70 Blood Pressure Location Lt brachial Position Sitting Intake Visit Reasons: S/P Excision Rt inguinal lymph node Intake Note: Patient is seen in office for post op assessment post right inguinal lymph node biopsy. Pt c/o: denies any concerns, healing as expected Op: 11/04/23 Furnace Combination Analyst Required: No Accompanied by: Son Allergies amoxicillin [From AUGMENTIN] Allergy (Intermediate, Verified 11/14/23 14:03) LIP SWELLING clavulanic acid [From AUGMENTIN] Allergy (Intermediate, Verified 11/14/23 14:03) LIP SWELLING piperacillin [From ZOSYN] Allergy (Intermediate, Verified 11/14/23 14:03) LIP SWELLING tazobactam [From ZOSYN] Allergy (Intermediate, Verified 11/14/23 14:03) LIP SWELLING diltiazem Adverse Reaction (Verified 11/14/23 14:03) Weakness HPI HPI Comments History of Present Illness Details Patient returns 1 week following excision of a large right inguinal lymph node. He tolerated the procedure well and reports no problems with his incision. Pathology report is pending at the time of this dictation however with communication with Dr. Maravilla, a metastatic adenocarcinoma is suspected. Further workup is pending. Patient does have a prior history of rectal carcinoma. [facility] Medical History Hx of sick sinus syndrome History of rectal cancer Ileostomy in place Scoliosis Osteoarthritis Cardiac pacemaker Atrial fibrillation Parkinson's disease Surgical History Hx of lymph node biopsy (11/04/23) Hx of colonoscopy Hx of colectomy (2007) History of left inguinal hernia repair (09/26/17) Social History Household Members: None Housing: House Are you a primary care navigator to a significant other at home: No Do you presently have visiting nurse or other home services: No (supportive son Salvador, discussing resources for care with PCP) Alcohol intake: current Alcohol intake frequency: holidays/special occasions only Patient Tobacco Use Status: Never used Tobacco Physical Exam Vital Signs: Last Vital Signs BP 110/70 11/14/23 14:01 BMI result Body Mass Index 22.1 Const General: no acute distress Nutritional Appearance: thin Orientation/consciousness: patient oriented x3 Limitations: ambulation with walker Resp Effort & Inspection: normal respiratory effort GI Other: Incision in the right groin is clean, dry, and intact with intact Steri-Strips. No hematoma or seroma is appreciated. Skin General skin exam: no rashes or lesions noted Neuro General: patient oriented x3 Assessment & Plan Assessment & Plan (1) Lymphadenopathy: Code(s): R59.1 - Generalized enlarged lymph nodes Plan 83-year-old male patient with right inguinal lymphadenopathy, metastatic adenocarcinoma suspected on preliminary pathology. Will await the final pathology and refer to medical oncology for further evaluation. Patient expressed understanding and agrees with the plan. Coding Level of Care Code Global (65603) Diagnoses Lymphadenopathy R59.1
[2023-11-14 14:01] VITALS: BP 110/70; BMI 22.1
== END 2023-11-14 14:14 | disposition home or self-care (01) ==
PROVIDERS: PCP Internal Medicine; Visit Provider Surgery
DX: R59.1 Generalized enlarged lymph nodes (principal)
CPT/HCPCS: 99024

== ENCOUNTER → 2023-11-14 13:48 | Outpatient (BNVA) | payer MEDICARE, SELFPAY | PROVIDERS: PCP Internal Medicine; Visit Provider Surgery | DX: R59.1 Generalized enlarged lymph nodes (principal) | CPT/HCPCS: 99212 ==

== ENCOUNTER → 2023-11-27 08:25 | Outpatient (BNV) | payer MEDICARE, SELFPAY | PROVIDERS: PCP Internal Medicine; Visit Provider Internal Medicine | DX: C61 Malignant neoplasm of prostate (principal); C79.89 Secondary malignant neoplasm of other specified sites | CPT/HCPCS: 99205; 99214 ==

== ENCOUNTER 2023-12-09 10:41 | Outpatient (REF) | payer MEDICARE, SELFPAY ==
--- NOTE | ~2023-12-09 | CT_ITS ---
EXAMINATION: CT ABDOMEN AND PELVIS WITHOUT CONTRAST CLINICAL INFORMATION: Secondary malignant neoplasm of other specified sites. COMPARISON: CT abdomen and pelvis 09/04/2017. TECHNIQUE: Multidetector volumetric imaging was performed from the superior aspect of the liver through the pubic symphysis. Sagittal and coronal reformatted images were obtained on the technologist's workstation. This CT examination was performed using dose optimization techniques as appropriate, variously including the following: *Automated exposure control *Adjustment of mA and/or kV according to patient size (this includes techniques or standardized protocols for targeted exams where dose is matched to indication/reason for exam; i.e. extremities or head) *Use of iterative reconstruction technique DLP: 505 mGy-cm FINDINGS: LUNG BASES: The heart is mildly enlarged. No infiltrates, effusions or lung masses are seen. A right chest wall bipolar pacemaker is present. LIVER, GALLBLADDER, AND BILIARY TREE: The liver is normal in size, shape, and attenuation. Again seen are benign water density hepatic cysts with no solid focal hepatic lesion or biliary ductal dilatation is present. The gallbladder is contracted but otherwise unremarkable with no evidence of radiopaque gallstones, gallbladder wall thickening, or obvious pericholecystic inflammatory changes. PANCREAS: Unremarkable. SPLEEN: Unremarkable. ADRENAL GLANDS: Unremarkable. KIDNEYS AND URETERS: The kidneys are normal in size, shape, and attenuation. No hydronephrosis, hydroureter, or calculi seen. No perinephric stranding. Benign benign Bosniak class I renal cysts are again seen, which require no additional imaging or follow-up. No solid renal masses are seen. BLADDER: Mild bladder wall thickening. There are 4 layering calculi present in the bladder, all new when compared to the prior study with the largest measuring 9 mm in size (see infante image). GASTROINTESTINAL TRACT: Again seen are findings of partial colectomy with right lower quadrant colostomy. There is colonic diverticulosis without diverticulitis. The small bowel is unremarkable without evidence of obstruction. The appendix is not seen with surgical clips in its expected position. ABDOMINAL WALL: No significant hernia is appreciated. Ostomy as described above. LYMPH NODES: There are some small shotty retroperitoneal lymph nodes present but no gross retroperitoneal lymphadenopathy. Prominent inguinal lymph nodes are unchanged when compared to the 2018 study with the largest node in the left groin measuring 1.2 cm in short axis dimension (3:85 compare prior 2:80). VASCULAR: Unremarkable. PELVIC VISCERA: Unremarkable. OSSEOUS STRUCTURES: There is an old healed inferior pubic ramus fracture on the right. Moderate degenerative changes are present throughout the lumbosacral spine with mild stepwise anterolisthesis of L4 upon L5 and L5 upon S1. No pars defects are seen. No bony destructive lesions. CT/CT abdomen pelvis wo IV con IMPRESSION: 1. No evidence of metastatic disease in the abdomen or pelvis. 2. Incidental note made of benign hepatic and renal cysts which need no further imaging or follow-up, partial colectomy with right lower quadrant colostomy, colonic diverticulosis without diverticulitis and degenerative changes in the spine. 3. There are 4 new bladder calculi present. Fleischner guidelines were followed.
== END 2023-12-09 10:42 | disposition home or self-care (01) ==
LOC: HO.CT 10:41
PROVIDERS: PCP Internal Medicine; Visit Provider Urology
DX: C79.89 Secondary malignant neoplasm of other specified sites (principal); C61 Malignant neoplasm of prostate
CPT/HCPCS: 74176

== ENCOUNTER → 2023-12-31 10:19 | Outpatient (REF) | payer MEDICARE, SELFPAY ==
--- NOTE | ~2023-12-31 | NM_ITS ---
EXAMINATION: NM BONE SCAN OF THE WHOLE BODY CLINICAL INFORMATION: A 83-year-old male with prostate cancer. Prior history of rectal carcinoma. Status post excision of right inguinal lymph node on November 04, 2023. COMPARISON: CT of the abdomen and pelvis done on 12/09/2023. TECHNIQUE: Multiple gamma scintillation camera images of the whole body were performed 3.5 hours following the intravenous administration of 23 mCi Tc-99m MDP. FINDINGS: In the head, no suspicious focal lesion. In the thoracic cage and upper extremities, slight heterogeneous tracer avidity is noted involving the sternum. Likely degenerative arthropathy involving both acromioclavicular and glenohumeral joints. Mild increased tracer avidity involving the left hemithoracic cage anterolaterally may represent healing rib fractures. Radiographic correlation is recommended. In the spine, scoliotic changes and likely superimposed mild multilevel degenerative spondylosis related changes are noted at mid to lower thoracic and lower lumbosacral spine. In the pelvis, no suspicious focal lesion. In the lower extremities, patchy heterogeneous tracer avidity is noted at mid to distal part of the left femur and right distal leg and right midfoot. These are nonspecific, may represent posttraumatic and/or arthritic changes. Radiographic correlation is recommended. No other definite bony abnormalities are noted. The urinary bladder and faint visualization of both kidneys are noted. NM/NM bone scan whole body IMPRESSION: No definite evidence of any osseous metastasis. Heterogeneous tracer avidity however is present involving the sternum and mid to distal part of the left femur and distal right leg and likely degenerative spondylosis involving the spine. A follow-up PSMA PET CT study may be considered (more accurate for estimation of loco-regional disease as well as metastasis in patient with prostate cancer) if clinically appropriate.
== END ==
LOC: HO.NUCMED 10:19
PROVIDERS: PCP Internal Medicine; Visit Provider Urology
DX: C61 Malignant neoplasm of prostate (principal); C79.51 Secondary malignant neoplasm of bone; C79.89 Secondary malignant neoplasm of other specified sites
CPT/HCPCS: 78306; A9503

== ENCOUNTER 2024-01-02 13:10 | Outpatient (AMB) | payer MEDICARE, SELFPAY ==
--- NOTE | 2024-01-02 13:27 | A.OFFVIS_ITS ---
Intake Visit Reasons: Follow up with [facility] Intake Note: Patient is present for follow up imaging Allergies amoxicillin [From AUGMENTIN] Allergy (Intermediate, Verified 11/27/23 08:41) LIP SWELLING clavulanic acid [From AUGMENTIN] Allergy (Intermediate, Verified 11/27/23 08:41) LIP SWELLING piperacillin [From ZOSYN] Allergy (Intermediate, Verified 11/27/23 08:41) LIP SWELLING tazobactam [From ZOSYN] Allergy (Intermediate, Verified 11/27/23 08:41) LIP SWELLING diltiazem Adverse Reaction (Verified 11/27/23 08:41) Weakness Medication List - Last Reconciled 01/02/24 by Raad Nix MD abiraterone 1,000 mg (4 x 250 mg) PO DAILY 30 days atenolol 75 mg PO DAILY bicalutamide 50 mg PO DAILY 30 days carbidopa-levodopa 25-100 mg 3 tabs PO TID digoxin 125 mcg PO DAILY donepezil 10 mg PO DAILY ergocalciferol (vitamin D2) (Vitamin D2) 1,250 mcg PO QWEEK levothyroxine 150 mcg PO DAILY multivitamin 1 tab PO DAILY prednisone 5 mg PO BID 30 days vit C,K-Qb-jlzpo-lutein-zeaxan 250-90-40-1 mg (PreserVision AREDS-2) 1 tab PO BID PFSH Medical History Hx of sick sinus syndrome History of rectal cancer Ileostomy in place Scoliosis Osteoarthritis Cardiac pacemaker Atrial fibrillation Parkinson's disease Surgical History Hx of lymph node biopsy (11/04/23) Hx of colonoscopy Hx of colectomy (2007) History of left inguinal hernia repair (09/26/17) Social History (Updated 11/27/23 @ 08:41 by Jsese Villalta) Household Members: None Housing: House Are you a primary customer care manager to a significant other at home: No Do you presently have visiting nurse or other home services: No (supportive son Salvador, discussing resources for care with PCP) Alcohol intake: current Alcohol intake frequency: holidays/special occasions only Patient Tobacco Use Status: Never used Tobacco service: No Current occupational status: retired Assessment & Plan Assessment & Plan (1) Osteopenia: Code(s): M85.80 - Other specified disorders of bone density and structure, unspecified site Category: Medical (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: Code(s): C61 - Malignant neoplasm of prostate; C79.89 - Secondary malignant neoplasm of other specified sites Category: Medical Orders: Orders XR DEXA axial skeleton 3 Months M85.80 - Other specified disorders of bone density and structure, unspecified site Medications: New abiraterone must be taken on empty stomach, at least 1 hr before or 2 hrs after a meal/food 1,000 mg (4 x 250 mg) PO DAILY 120 tabs 5RF 30 days C61 - Malignant neoplasm of prostate, C79.89 - Secondary malignant neoplasm of other specified sites, R97.21 - Rising PSA following treatment for malignant neoplasm of prostate prednisone 5 mg PO BID 60 tabs 5RF 30 days C61 - Malignant neoplasm of prostate, C77.2 - Secondary and unspecified malignant neoplasm of intra-ab dominal lymph nodes, C79.89 - Secondary malignant neoplasm of other specified sites Coding Diagnoses Osteopenia M85.80 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
--- NOTE | 2024-01-02 13:40 | A.OFFVIS_ITS ---
Intake Visit Reasons: Follow up with [facility] Allergies amoxicillin [From AUGMENTIN] Allergy (Intermediate, Verified 11/27/23 08:41) LIP SWELLING clavulanic acid [From AUGMENTIN] Allergy (Intermediate, Verified 11/27/23 08:41) LIP SWELLING piperacillin [From ZOSYN] Allergy (Intermediate, Verified 11/27/23 08:41) LIP SWELLING tazobactam [From ZOSYN] Allergy (Intermediate, Verified 11/27/23 08:41) LIP SWELLING diltiazem Adverse Reaction (Verified 11/27/23 08:41) Weakness Medication List - Last Reconciled 01/02/24 by Raad Nix MD abiraterone 1,000 mg (4 x 250 mg) PO DAILY 30 days atenolol 75 mg PO DAILY bicalutamide 50 mg PO DAILY 30 days carbidopa-levodopa 25-100 mg 3 tabs PO TID digoxin 125 mcg PO DAILY donepezil 10 mg PO DAILY ergocalciferol (vitamin D2) (Vitamin D2) 1,250 mcg PO QWEEK levothyroxine 150 mcg PO DAILY multivitamin 1 tab PO DAILY prednisone 5 mg PO BID 30 days vit C,L-Tm-oqewp-lutein-zeaxan 250-90-40-1 mg (PreserVision AREDS-2) 1 tab PO BID HPI Comments Details: Mr. Hodges is a pleasant male. Accompanied by his son. Retired java web architect. He is a patient of . He is seen for the following urologic conditions - sergio metastatic prostate cancer Discussed with patient and son diagnosis of metastatic prostate cancer This would be consistent with PSA findings Continue bicalutamide in increase to twice per day. After GnRH injection this will be stopped Complete DEXA scan for osteopenia/osteoporosis baseline evaluation Dr. Razo oncology recommends initiating abiraterone - will be ordered Bone scan completed but not reported Metastatic prostate cancer diagnosed 11/09 following excision of right inguinal lymph node No prior history of prostate issues Treated in 2001 for rectal cancer with chemoradiation followed by surgery. Has ileostomy. Initially started at bicalutamide following diagnosis in hospital PSA 12/10 280 imaging - 12/10 CT No evidence of metastatic disease in the abdomen or pelvis. [facility] Medical History Hx of sick sinus syndrome History of rectal cancer Ileostomy in place Scoliosis Osteoarthritis Cardiac pacemaker Atrial fibrillation Parkinson's disease Surgical History Hx of lymph node biopsy (11/04/23) Hx of colonoscopy Hx of colectomy (2007) History of left inguinal hernia repair (09/26/17) Social History (Updated 11/27/23 @ 08:41 by Jesse Villalta) Household Members: None Housing: House Are you a primary intensive care unit nurse to a significant other at home: No Do you presently have visiting nurse or other home services: No (supportive son Salvador, discussing resources for care with PCP) Alcohol intake: current Alcohol intake frequency: holidays/special occasions only Patient Tobacco Use Status: Never used Tobacco service: No Current occupational status: retired Review of Systems Const Denies chills and Denies fever(s) Card Reports no additional complaints and Denies syncope Resp Denies cough GI Denies abdominal pain and Denies heartburn Reports as per HPI and Denies change in libido Neuro Denies syncope Psych Denies change in libido Endo Denies change in libido Physical Exam Const General: cooperative, healthy appearing, comfortable and no acute distress Orientation/consciousness: patient oriented x3 HEENT Face and sinus: Yes normal facial exam Mouth: moist mucous membranes Neck Neck: Yes normal visual inspection, Yes full ROM and Yes trachea midline Chest Chest palpation & inspection: normal inspection of the chest Resp Effort & Inspection: normal respiratory effort, able to speak in complete sentences and no respiratory distress GI Inspection: Yes normal to inspection Back/Spine/Pelvis Cervical Spine: normal cervical lordosis Thoracic/Lumbar Spine: thoracic and lumbar spine normal to inspection Skin General skin exam: no rashes or lesions noted Neuro General: patient oriented x3, gait normal, tone normal and moves all extremities Extrem General: Yes normal to inspection and Yes capillary refill normal Assessment & Plan Assessment & Plan (1) 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: Code(s): C61 - Malignant neoplasm of prostate; C79.89 - Secondary malignant neoplasm of other specified sites Category: Medical (2) Osteopenia: Code(s): M85.80 - Other specified disorders of bone density and structure, unspecified site Category: Medical Plan 2 week follow-up [facility] office DEXA scan Pending bone scan Orders: Orders XR DEXA axial skeleton 3 Months M85.80 - Other specified disorders of bone density and structure, unspecified site Medications: New abiraterone must be taken on empty stomach, at least 1 hr before or 2 hrs after a meal/food 1,000 mg (4 x 250 mg) PO DAILY 30 days 120 tabs 5RF C61 - Malignant neoplasm of prostate, C79.89 - Secondary malignant neoplasm of other specified sites, R97.21 - Rising PSA following treatment for malignant neoplasm of prostate prednisone 5 mg PO BID 30 days 60 tabs 5RF C61 - Malignant neoplasm of prostate, C77.2 - Secondary and unspecified malignant neoplasm of intra- abdominal lymph nodes, C79.89 - Secondary malignant neoplasm of other specified sites Patient Instructions: Imaging studies, laboratory and physical exam results were discussed and reviewed in detail. No major barriers to patient understanding were identified. An opportunity to ask questions regarding the treatment plan was provided. All questions were answered. The patient expressed understanding and agreement with the above treatment plan. The patient is aware they should contact our office by phone for worsening of their current condition or the appearance of new urologic symptoms. Compliance is encouraged with any medications and followup testing that is ordered. It is a privilege to participate in the urologic care of your patient. If you have any questions or concerns regarding treatment for the above conditions, or other urologic issues, please do not hesitate to contact me. The office telephone contact is [phone]. This note is constructed using voice recognition software. While every effort has been made to ensure accuracy transportation modeler errors may have been included. 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
== END 2024-01-02 13:56 | disposition home or self-care (01) ==
PROVIDERS: PCP Internal Medicine; Visit Provider Urology
DX: C61 Malignant neoplasm of prostate (principal); C79.89 Secondary malignant neoplasm of other specified sites; M85.80 Other specified disorders of bone density and structure, unspecified site
CPT/HCPCS: 99204

== ENCOUNTER → 2024-01-02 13:10 | Outpatient (BNVA) | payer MEDICARE, SELFPAY | PROVIDERS: PCP Internal Medicine; Visit Provider Urology | DX: C61 Malignant neoplasm of prostate (principal); C79.89 Secondary malignant neoplasm of other specified sites; M85.80 Other specified disorders of bone density and structure, unspecified site | CPT/HCPCS: 99202 ==

== ENCOUNTER 2024-01-23 13:14 | Outpatient (AMB) | payer MEDICARE, SELFPAY ==
--- NOTE | 2024-01-23 13:19 | AM.OFFVISNUR ---
Intake Intake Visit Reasons: [facility] Allergies amoxicillin [From AUGMENTIN] Allergy (Intermediate, Verified 11/27/23 08:41) LIP SWELLING clavulanic acid [From AUGMENTIN] Allergy (Intermediate, Verified 11/27/23 08:41) LIP SWELLING piperacillin [From ZOSYN] Allergy (Intermediate, Verified 11/27/23 08:41) LIP SWELLING tazobactam [From ZOSYN] Allergy (Intermediate, Verified 11/27/23 08:41) LIP SWELLING diltiazem Adverse Reaction (Verified 11/27/23 08:41) Weakness Office Meds Eligard (6 month) 45 mg (6 month) subcutaneous syringe Performing Provider: Raad Nix MD [facility] Administered by: Julian Rodriguez LPN on 01/23/24 13:33 Dose Route Admin Location Dispensed Lot Number Expiration Date [facility] [employer] 45 mg subcut right arm 45 mg [id number] 04/19/25 03098-543-75 [employer]. Coding Assessment & Plan Assessment & Plan Orders: Orders AMB Leuprolide Injection - Practice Supplied Today C61 - Malignant neoplasm of prostate, C79.89 - Secondary malignant neoplasm of other specified sites Medications: New Eligard (6 month) (leuprolide acetate (6 month)) 45 mg subcut ONCE 1 ea 0RF NS C61 - Malignant neoplasm of prostate, C79.89 - Secondary malignant neoplasm of other specified sites
== END 2024-01-23 13:37 | disposition home or self-care (01) ==
LOC: HO.HUSH 13:14
PROVIDERS: PCP Internal Medicine; Visit Provider Urology
DX: C61 Malignant neoplasm of prostate (principal); C79.89 Secondary malignant neoplasm of other specified sites

== ENCOUNTER → 2024-01-23 13:14 | Outpatient (BNVA) | payer MEDICARE, SELFPAY | PROVIDERS: PCP Internal Medicine; Visit Provider Urology | DX: C61 Malignant neoplasm of prostate (principal); C79.89 Secondary malignant neoplasm of other specified sites | CPT/HCPCS: 96402; J9217 ==